=== PATIENT | male | born 1985 | race Two or more races ===

== ENCOUNTER 2018-05-19 23:19 | Emergency (ER) | payer MEDICAID, OTHER ==
[~2018-05-19] VITALS: Ht 170.2 cm; Wt 59.0 kg
[2018-05-19] MEDS ORDERED: TDAP [DIPH/PERTUSSIS/TET] 0.5 ML VIAL IM ONE (23:58)
--- NOTE | 2018-05-19 23:58 | NUR ---
Pt bib family for top of head laceration s/p trip & fall, hit head on rock x today w/ no reported LOC. pt report family put "hungarian coffee" in wound to help control bleeding & admits to drinking a bottle of tequila while at family's house warming democrat today. pt AOx4, afebrile w/ resp even & unlabored, denies any [place], no dizziness w/ no blurred visions. Pending further evcait GIBBS.
[2018-05-20] MEDS ORDERED: TDAP [DIPH/PERTUSSIS/TET] 0.5 ML VIAL IM ONE
--- NOTE | 2018-05-20 00:02 | NUR ---
Dr. Bazan at bedside for update on pt status.
--- NOTE | 2018-05-20 00:06 | NUR ---
pt ambulatory w/ steady gait to nurse's station, agitated, threatening to leave if he's not taken care of right away. pt instructed to go back to , advised pt of status, awaiting CT head.
--- NOTE | 2018-05-20 00:27 | NUR ---
Pt sent to CT via gupamela w/ resp even & unlabored, nad noted.
--- NOTE | 2018-05-20 00:40 | NUR ---
EMT at bedside for wound irrigation top of head laceration w/ NS. Pt tolerated procedure well w/ nad noted.
--- NOTE | 2018-05-20 00:53 | NUR ---
Dr. Bazan at bedside for application joe to top of head laceration. Pt tolerated procedure well w/ nad noted.
--- NOTE | 2018-05-20 01:01 | NUR ---
6 joe to top of head laceration intact w/ wound edges well approximated, no active bleeding noted. EMT at bedside for application dry nonadherent gauze dressing to top of head laceration.
--- NOTE | 2018-05-20 01:02 | NUR ---
Pt medically cleared by Dr. Bazan and discharged to home in stable condition. Patient discharged to home in stable condition. Written and verbal after care instructions given. Patient verbalizes understanding of instruction.
[2018-05-20 01:03] VITALS: BP 120/69
== END 2018-05-20 01:03 | disposition home or self-care (01) ==
LOC: ER 23:25
DX: S01.01XA Laceration without foreign body of scalp, initial encounter (principal); F10.20 Alcohol dependence, uncomplicated; M54.2 Cervicalgia; Y90.9 Presence of alcohol in blood, level not specified; W01.198A Fall on same level from slipping, tripping and stumbling with subsequent striking against other object, initial encounter; Y93.89 Activity, other specified; Y92.89 Other specified places as the place of occurrence of the external cause; Y99.8 Other external cause status
CPT/HCPCS: 12002; 70450; 72125; 90471; 90715; 99284; A4217; A4606; A6403 ×2; Z7610

== ENCOUNTER 2018-08-18 09:43 | Emergency (ER) | payer BC, OTHER ==
[~2018-08-18] VITALS: Ht 167.6 cm; Wt 68.0 kg
--- NOTE | 2018-08-18 09:45 | NUR ---
AAOX3, CAME TO ER C/O LEFT SHOULDER PAIN, +DEFORMITY S/P PLAYING SOCCER. RR IS EVEN AND UNLABORED WITH NAD NOTED. SKIN IS WARM AND DRY. AWAITING MD FOR EVAL.
--- NOTE | 2018-08-18 09:58 | NUR ---
r ac 18g started. md at bedside for eval.
[2018-08-18] MEDS ORDERED: HYDROCODONE/APAP 10/325MG 1 EA TABLET PO ONE (10:00)
[2018-08-18] MEDS ORDERED: HYDROCODONE/APAP 10/325MG 1 EA TABLET ONE (10:04)
--- NOTE | 2018-08-18 10:07 | NUR ---
XRAY AT BS
--- NOTE | 2018-08-18 11:23 | NUR ---
IV removed. Catheter intact and site benign. Pressure and 4x4 applied to site. No bleeding noted.Patient discharged to home in stable condition. Written and verbal after care instructions given. Patient verbalizes understanding of instruction.
[2018-08-18 11:24] VITALS: BP 138/91
== END 2018-08-18 11:25 | disposition home or self-care (01) ==
LOC: ER 09:46
DX: S42.032A Displaced fracture of lateral end of left clavicle, initial encounter for closed fracture (principal); W19.XXXA Unspecified fall, initial encounter; Y93.66 Activity, soccer; Y92.322 Soccer field as the place of occurrence of the external cause; Y99.8 Other external cause status
CPT/HCPCS: 73000-TC